=== PATIENT | male | born 1975 | race Caucasian/White ===

== ENCOUNTER 2021-01-17 13:45 | Inpatient (IN) | payer OTHER ==
[2021-01-17 14:39] VITALS: BMI 19.8
[2021-01-17] MEDS ORDERED: MENTHOL/PHENOL 1 EACH UD MM PRN (16:14)
[2021-01-17] MEDS ORDERED: ACETAMINOPHEN 325 MG TABLET (FP) PO PRN ×2 (16:14)
[2021-01-17] MEDS ORDERED: IBUPROFEN 400 MG TABLET (FP) PO PRN (16:14)
[2021-01-17] MEDS ORDERED: chlordiazePOXIDE HCL 25 MG CAPSULE PO PRN (16:14)
[2021-01-17] MEDS ORDERED: MAGNESIUM HYDROX 2400MG/30ML ORAL SUSPENSION 30 ML CUP PO PRN (16:14)
[2021-01-17] MEDS ORDERED: ONDANSETRON *ODT* 4 MG TABLET SL PRN (16:14)
[2021-01-17] MEDS ORDERED: MAGNESIUM CITRATE 300 ML BOTTLE PO PRN (16:14)
[2021-01-17] MEDS ORDERED: METHOCARBAMOL 500 MG TABLET PO PRN (16:14)
[2021-01-17] MEDS ORDERED: NICOTINE POLACRILEX 2 MG GUM BUC PRN (16:14)
[2021-01-17] MEDS ORDERED: MAG HYDROX/AL HYDROX/SIMETH 30 ML UNIT-DOSE CUP PO PRN (16:14)
[2021-01-17] MEDS ORDERED: BISMUTH SUBSALICYLATE 524 MG/30 ML UD PO PRN (16:14)
[2021-01-17] MEDS: chlordiazePOXIDE HCL 25 MG CAPSULE PO SCH ×2 (18:37→22:30)
[2021-01-17] MEDS: hydrOXYzine PAMOATE 25 MG CAPSULE (FP) PO SCH ×2 (18:38→22:30)
[2021-01-17] MEDS: NICOTINE 7 MG/24 HOURS TOPICAL PATCH TD SCH (18:41)
[2021-01-17] MEDS: MELATONIN 5 MG TABLETS PO SCH (22:30)
[2021-01-17] MEDS: THIAMINE HCL 100 MG TABLET (FP) PO SCH (22:30)
[2021-01-18] MEDS: chlordiazePOXIDE HCL 25 MG CAPSULE PO SCH ×4 (06:14→22:42)
[2021-01-18] MEDS: hydrOXYzine PAMOATE 25 MG CAPSULE (FP) PO SCH ×2 (06:15→11:02)
[2021-01-18] MEDS ORDERED: METHADONE HCL 10 MG TABLET PO ONE (10:35)
[2021-01-18] MEDS ORDERED: METHADONE 40 MG, METHADONE 20 MG, METHADONE 5 MG PO ONE (10:35)
[2021-01-18] MEDS ORDERED: hydrOXYzine PAMOATE 25 MG CAPSULE (FP) PO PRN (10:39)
[2021-01-18 10:50] LABS: ALBUMIN 3.6 g/dl (3.4-5.0); CALCIUM 9.1 mg/dL (8.5-10.1)
[2021-01-18 10:51] LABS: BLOOD UREA NITROGEN 16.1 mg/dL (7-18)
[2021-01-18] MEDS ORDERED: METHADONE HCL 10 MG TABLET ONE (10:51)
[2021-01-18] MEDS ORDERED: METHADONE HCL 40 MG DISPERSABLE TABLET ONE (10:51)
[2021-01-18] MEDS ORDERED: METHADONE HCL 5 MG TABLET ONE (10:51)
[2021-01-18 10:54] LABS: CREATININE 0.7 mg/dL (0.55-1.3)
[2021-01-18 10:55] LABS: BILIRUBIN,TOTAL 0.6 mg/dL (0.2-1)
[2021-01-18 10:57] LABS: HEMATOCRIT 37.4 % (35.4-49); HEMOGLOBIN 12.6 GM/dL (11.7-16.9); MCH 33.3 pg (25.7-33.7); MCHC 33.8 g/dl (32.0-35.9); MEAN CELL VOLUME 98.4 fl (80-96); MEAN PLT VOLUME 8.9 fl (7.5-11.1); PLATELET COUNT 144 K/MM3 (134-434); RDW 14.4 % (11.9-15.9)
[2021-01-18] MEDS: PRENATAL VITAMINS W/ FOLIC ACID TABLET (FP) PO SCH (10:58)
[2021-01-18] MEDS: NICOTINE 7 MG/24 HOURS TOPICAL PATCH TD SCH (10:59)
[2021-01-18] MEDS: MELATONIN 5 MG TABLETS PO SCH (22:41)
[2021-01-18] MEDS: THIAMINE HCL 100 MG TABLET (FP) PO SCH (22:42)
[2021-01-19] MEDS ORDERED: METHADONE HCL 10 MG TABLET ONE (04:49)
[2021-01-19] MEDS ORDERED: METHADONE HCL 40 MG DISPERSABLE TABLET ONE (04:50)
[2021-01-19] MEDS ORDERED: METHADONE HCL 5 MG TABLET ONE (04:50)
[2021-01-19] MEDS ORDERED: METHADONE HCL 40 MG DISPERSABLE TABLET PO SCH (06:00)
[2021-01-19] MEDS: METHADONE 40 MG, METHADONE 20 MG, METHADONE 5 MG PO SCH (07:19)
[2021-01-19] MEDS: chlordiazePOXIDE HCL 25 MG CAPSULE PO SCH ×4 (07:20→22:42)
[2021-01-19] MEDS: NICOTINE 7 MG/24 HOURS TOPICAL PATCH TD SCH (10:33)
[2021-01-19] MEDS: PRENATAL VITAMINS W/ FOLIC ACID TABLET (FP) PO SCH (10:34)
[2021-01-19] MEDS: MELATONIN 5 MG TABLETS PO SCH (22:43)
[2021-01-19] MEDS: THIAMINE HCL 100 MG TABLET (FP) PO SCH (22:43)
[2021-01-20] MEDS ORDERED: chlordiazePOXIDE HCL 10 MG CAPSULE PO PRN
[2021-01-20] MEDS ORDERED: METHADONE HCL 10 MG TABLET ONE (04:48)
[2021-01-20] MEDS ORDERED: METHADONE HCL 5 MG TABLET ONE (04:49)
[2021-01-20] MEDS ORDERED: METHADONE HCL 40 MG DISPERSABLE TABLET ONE (04:49)
[2021-01-20] MEDS: chlordiazePOXIDE HCL 10 MG CAPSULE PO SCH ×4 (06:10→22:10)
[2021-01-20] MEDS: METHADONE 40 MG, METHADONE 20 MG, METHADONE 5 MG PO SCH (06:11)
[2021-01-20 10:03] LABS: BASO % 0.7 % (0-2.0); EOS % 4.5 % (0-4.5); HEMATOCRIT 39.4 % (35.4-49); LYMPH % 18.6 % (8-40); MCHC 33.1 g/dl (32.0-35.9); MEAN CELL VOLUME 99.8 fl (80-96); MEAN PLT VOLUME 9.9 fl (7.5-11.1); MONO % 8.1 % (3.8-10.2); NEUT % 68.1 % (42.8-82.8); PLATELET COUNT 137 K/MM3 (134-434); RBC 3.94 M/mm3 (4.00-5.60); RDW 14.4 % (11.9-15.9); WHITE BLOOD COUNT 4.5 K/mm3 (4.0-10.0)
[2021-01-20 10:25] LABS: POTASSIUM 4.3 mmol/L (3.5-5.1)
[2021-01-20 10:28] LABS: ALBUMIN 3.7 g/dl (3.4-5.0); BLOOD UREA NITROGEN 17.2 mg/dL (7-18)
[2021-01-20 10:32] LABS: CREATININE 0.8 mg/dL (0.55-1.3)
[2021-01-20 10:33] LABS: BILIRUBIN,TOTAL 0.6 mg/dL (0.2-1)
[2021-01-20] MEDS: PRENATAL VITAMINS W/ FOLIC ACID TABLET (FP) PO SCH (10:49)
[2021-01-20] MEDS: NICOTINE 7 MG/24 HOURS TOPICAL PATCH TD SCH (10:50)
[2021-01-20] MEDS: THIAMINE HCL 100 MG TABLET (FP) PO SCH (22:10)
[2021-01-20] MEDS: MELATONIN 5 MG TABLETS PO SCH (22:10)
[2021-01-21] MEDS ORDERED: METHADONE HCL 40 MG DISPERSABLE TABLET ONE (04:29)
[2021-01-21] MEDS ORDERED: METHADONE HCL 10 MG TABLET ONE (04:29)
[2021-01-21] MEDS ORDERED: METHADONE HCL 5 MG TABLET ONE (04:29)
[2021-01-21] MEDS: METHADONE 40 MG, METHADONE 20 MG, METHADONE 5 MG PO SCH (06:14)
[2021-01-21] MEDS: chlordiazePOXIDE HCL 10 MG CAPSULE PO SCH ×2 (06:14→17:42)
[2021-01-21] MEDS: PRENATAL VITAMINS W/ FOLIC ACID TABLET (FP) PO SCH (10:18)
[2021-01-21] MEDS: NICOTINE 7 MG/24 HOURS TOPICAL PATCH TD SCH (10:20)
[2021-01-21] MEDS: MELATONIN 5 MG TABLETS PO SCH (22:23)
[2021-01-21] MEDS: THIAMINE HCL 100 MG TABLET (FP) PO SCH (22:23)
[2021-01-22] MEDS ORDERED: METHADONE HCL 10 MG TABLET ONE (04:34)
[2021-01-22] MEDS ORDERED: METHADONE HCL 5 MG TABLET ONE (04:34)
[2021-01-22] MEDS ORDERED: METHADONE HCL 40 MG DISPERSABLE TABLET ONE (04:34)
[2021-01-22] MEDS ORDERED: chlordiazePOXIDE HCL 10 MG CAPSULE PO ONE (05:00)
[2021-01-22] MEDS: METHADONE 40 MG, METHADONE 20 MG, METHADONE 5 MG PO SCH (06:09)
[2021-01-22] MEDS: NICOTINE 7 MG/24 HOURS TOPICAL PATCH TD SCH (09:35)
[2021-01-22] MEDS: PRENATAL VITAMINS W/ FOLIC ACID TABLET (FP) PO SCH (09:35)
[2021-01-22 09:49] VITALS: BP 107/82; PULSE 104; TEMP 97.8
== END 2021-01-22 11:18 | disposition home or self-care (01) | DRG 773 ==
LOC: YASAS 13:45 → Y3N 16:30
PROVIDERS: ADMIT Allergy & Immunology; ATTEND Allergy & Immunology
PROC: HZ2ZZZZ Detoxification Services for Substance Abuse Treatment (ICD-10-PCS; principal; 2021-01-17)
DX: F10.230 Alcohol dependence with withdrawal, uncomplicated (principal); F11.20 Opioid dependence, uncomplicated; F17.210 Nicotine dependence, cigarettes, uncomplicated; D57.3 Sickle-cell trait; B18.2 Chronic viral hepatitis C; R63.4 Abnormal weight loss; Z68.1 Body mass index [BMI] 19.9 or less, adult; S01.01XD Laceration without foreign body of scalp, subsequent encounter; W19.XXXD Unspecified fall, subsequent encounter; Y92.85 Railroad track as the place of occurrence of the external cause
CPT/HCPCS: 36415; 80053; 85025; 85027; 86780; 93005; 93010; C9803; U0003